=== PATIENT | female | born 1955 | race Caucasian/White ===

== ENCOUNTER 2020-12-12 20:30 | Emergency (ER) | payer MEDICARE, SELFPAY ==
[2020-12-12 21:03] VITALS: BP 123/73; PULSE 67; RESP 16; TEMP 36.8; O2SAT 93; BMI 29.9
--- NOTE | 2020-12-12 21:06 | CTR_ITS ---
PROCEDURE INFORMATION: Exam: CT Head Without Contrast Exam date and time: 12/12/2020 9:06 PM Age: 65 years old Clinical indication: Injury or trauma; Blunt trauma (contusions or hematomas); Patient HX: Fall. Lac to RT occipital/parietal. TECHNIQUE: Imaging protocol: Computed tomography of the head without contrast. Radiation optimization: All CT scans at this facility use at least one of these dose optimization techniques: automated exposure control; mA and/or kV adjustment per patient size (includes targeted exams where dose is matched to clinical indication); or iterative reconstruction. ADDITIONAL STUDY INFORMATION: Total DLP (mGy-cm): 880.47 COMPARISON: CT Head wo IV contrast* [id number] 01/25/2018 5:27 PM FINDINGS: Examination is limited by artifacts from patient motion. There is mild low density in the bilateral periventricular white matter which may represent chronic small vessel ischemic disease in the appropriate clinical setting. There are prominent intracranial arterial calcifications. There is mild to moderate cerebral cortical volume loss. Ventricles do not appear significantly dilated. No definite depressed calvarial fracture is demonstrated. Visualized paranasal sinuses and mastoid air cells demonstrate no significant opacification. CT/CT head wo con* [id number] IMPRESSION: Examination is limited by artifacts from patient motion. Probable chronic ischemic changes as discussed above. Radiation Dose CTDIVOL = (mGy): DLP = 880.47 (mGy-cm)
--- NOTE | 2020-12-12 21:31 | W.ED.HEATRA ---
HPI - Head Injury General: Chief complaint: Head Injury Stated complaint: head injury/lac Time Seen by Provider: 12/12/20 21:06 Source: patient Mode of arrival: ambulatory Limitations: no limitations History of Present Illness: HPI Narrative: 65-year-old female states that she was horsing around with her granddaughter and tripped backwards over a basketball and struck her head on a table. She does have a laceration to her posterior scalp and states she has a headache she rates a 6 out of 10. She denies any neck pain. Denies any other injuries. She denies loss consciousness. Associated symptoms: Deny nausea, neck pain or vomiting Review of Systems Const: Denies: fever(s), chills, body aches or change in appetite Eyes: Denies: blurry vision or eye discomfort ENMT: Denies: throat pain or dental pain Card: Denies: chest pain Resp: Denies: dyspnea GI: Denies: abdominal pain, nausea, vomiting or diarrhea : Denies: dysuria Musc: Denies: neck pain or back pain Skin/Breast: Denies: rash Neuro: Denies: headache(s) Psych: Denies: depression Albaro/Lymph: Denies: easy bruising All/Imm: Denies: urticaria Physical Exam Const: COMMON NORMALS: no acute distress, patient oriented x3 and healthy appearing HENMT: COMMON NORMALS: normocephalic HEAD & SCALP: normocephalic OTHER: 2 cm laceration to posterior scalp Eye: COMMON NORMALS: Equal, round and reactive pupils present and EOMs intact bilaterally PUPIL: Yes Equal, round and reactive pupils present Neck/C-Spine: COMMON NORMALS: full ROM and supple OTHER: No midline C-spine tenderness full range of motion noted without pain Chest: COMMONS NORMALS: normal inspection of the chest and normal palpation of entire chest wall Resp: COMMON NORMALS: normal respiratory effort, No retractions, No use of accessory muscles and clear to auscultation bilaterally AUSCULTATION: clear to auscultation bilaterally Cardio: COMMON NORMALS: regular rate, regular rhythm and No murmurs present (Cardio) RATE: regular rate RHYTHM: regular rhythm GI: COMMON NORMALS: Normal to inspection, nondistended, normoactive bowel sounds present, Soft to palpation, non-tender and no masses PALPATION: Yes Soft to palpation Extremity: COMMON NORMALS: normal to inspection and full ROM Neuro: COMMON NORMALS: patient oriented x3, moves all extremities and no focal motor deficits Psych: COMMON NORMALS: mental status grossly normal, Normal thought process present and cooperative THOUGHT PROCESS: Normal thought process present Skin: COMMON NORMALS: no rashes or lesions noted and no wounds GENERAL SKIN EXAM: no rashes or lesions noted Procedures Laceration Laceration 1: Site: scalp Size (cm): 3 Description: linear Depth: simple, single layer Local Anesthetic: lidocaine 1% Amount of anesthesia used (mL): 5 Pre-repair: wound explored and irrigated extensively Skin layer closed with: other (4 kavitha) Course Vital Signs: Vital signs: Vital Signs Temperature 98.3 F 12/12/20 21:03 Pulse Rate 72 12/12/20 21:53 Respiratory Rate 18 12/12/20 21:53 Blood Pressure 103/64 12/12/20 21:53 Pulse Oximetry 95 12/12/20 21:53 MDM - Head Injury MDM Narrative: Medical decision making narrative: Patient presents here with a head laceration from a fall. Laceration was repaired with kavitha. Head CT here showed no acute findings. She is stable for discharge and is to follow-up with PCP and return if worsening. Imaging Data^: CT Head: Radiologist's impression: [address] [id number] [address] Scan Report Signed Patient: Sondra Crawley Unit #: [id number] : 1955 Age/Sex: 65 / F ADM Date: 12/12/20 Loc: ER Room/Bed: Attending Dr: Ordering Provider/Ordering MD: Braulio Cruz MD Date of Service: 12/12/20 Procedure(s): CT head wo con* [id number] Accession Number(s): [id number] Report Number: [id number] PROCEDURE INFORMATION: Exam: CT Head Without Contrast Exam date and time: 12/12/2020 9:06 PM Age: 65 years old Clinical indication: Injury or trauma; Blunt trauma (contusions or hematomas); Patient HX: Fall. Lac to RT occipital/parietal. TECHNIQUE: Imaging protocol: Computed tomography of the head without contrast. Radiation optimization: All CT scans at this facility use at least one of these dose optimization techniques: automated exposure control; mA and/or kV adjustment per patient size (includes targeted exams where dose is matched to clinical indication); or iterative reconstruction. ADDITIONAL STUDY INFORMATION: Total DLP (mGy-cm): 880.47 COMPARISON: CT Head wo IV contrast* [id number] 01/25/2018 5:27 PM FINDINGS: Examination is limited by artifacts from patient motion. There is mild low density in the bilateral periventricular white matter which may represent chronic small vessel ischemic disease in the appropriate clinical setting. There are prominent intracranial arterial calcifications. There is mild to moderate cerebral cortical volume loss. Ventricles do not appear significantly dilated. No definite depressed calvarial fracture is demonstrated. Visualized paranasal sinuses and mastoid air cells demonstrate no significant opacification. CT/CT head wo con* [id number] IMPRESSION: Examination is limited by artifacts from patient motion. Probable chronic ischemic changes as discussed above. Radiation Dose CTDIVOL = (mGy): DLP = 880.47 Discharge Plan Discharge Patient Disposition: Home Clinical Impression: Laceration of head Qualifiers: Encounter type: initial encounter Location of open wound of head: other part of head Foreign body presence: without foreign body Qualified Code(s): S01.81XA - Laceration without foreign body of other part of head, initial encounter Fall Qualifiers: Encounter type: initial encounter Qualified Code(s): W19.XXXA - Unspecified fall, initial encounter Condition: Stable Discharge Orders: Discharge ED (Routine); Ordered 12/12/20 Ordered By: Braulio Cruz Referrals: Baltazar Miller MD [Primary Care Provider] - Discharge Diet: Advance as tolerated Discharge Activity: Resume usual activity Patient Instructions: Scalp Laceration Activity Restrictions/Additional Instructions: return in 7 days for staple removal Coding Level of Care Code ED [employer] for Chg Fwd Exam Comprehensive
[2020-12-12 21:53] VITALS: BP 103/64; PULSE 72; RESP 18; O2SAT 95
[2020-12-12] MEDS: tetanus-dipt-pertussis 0.5 mL SDV IM (21:58)
--- NOTE | 2020-12-12 22:10 | PC.NURSE ---
cleansed affected area with saline and peroxide with 4x4s as there was dried blood noted in hair and on patient. no dressing is applied
[2020-12-12 22:28] VITALS: BP 104/66
== END 2020-12-12 22:25 | disposition home or self-care (01) ==
PROVIDERS: Emergency Provider Emergency Medicine; PCP Family Medicine Geriatric Medicine
DX: S01.01XA Laceration without foreign body of scalp, initial encounter (principal); W18.09XA Striking against other object with subsequent fall, initial encounter; Z23 Encounter for immunization
CPT/HCPCS: 12002; 70450; 90471; 90715; 99283

== ENCOUNTER → 2020-12-31 16:13 | Outpatient (BNVA) | payer MEDICARE, SELFPAY | PROVIDERS: PCP Family Medicine Geriatric Medicine; Visit Provider Nurse Practitioner Family | DX: Z20.822 Contact with and (suspected) exposure to COVID-19 (principal) | CPT/HCPCS: 87635 ==

== ENCOUNTER → 2021-03-04 15:22 | Outpatient (BNVA) | payer MEDICARE, SELFPAY | PROVIDERS: PCP Family Medicine Geriatric Medicine; Visit Provider Podiatrist Foot & Ankle Surgery | DX: M21.371 Foot drop, right foot (principal); M20.41 Other hammer toe(s) (acquired), right foot; M20.42 Other hammer toe(s) (acquired), left foot | CPT/HCPCS: 73630 ==

== ENCOUNTER 2022-10-17 14:33 | Outpatient (CLI) | payer MEDICARE, SELFPAY ==
--- NOTE | 2022-10-17 14:52 | MR_ITS ---
WS: [id number] MRI LUMBAR SPINE NONCONTRAST HISTORY: DDD LUMBOSACRAL/SPINAL STENOSIS COMPARISON: 04/13/2012 TECHNIQUE: Sagittal and axial multisequence imaging is submitted. Central cervical stenosis at C3-4. Disc protrusions scattered throughout the thoracic and cervical sp ine. No cord compression. Marked LEFT curvature lumbar spine. Posterior fusion at L5-S1. Disc spaces are all narrowed and desiccated. Conus terminates normally at L1. L1-L2: Diffuse asymmetric disc bulging greatest to the LEFT. Marked ligamentum flavum and facet arthr itis. Osteophytic ridging. Mild central and subarticular recess stenosis. Moderate LEFT foraminal essence nosis. L2-L3: Asymmetric disc bulging and scoliosis. Marked facet and ligamentum flavum arthritis. Facet nicol nt encroachment into the RIGHT lateral thecal sac. Moderate central with severe bilateral subarticula r recess and foraminal stenosis. L3-L4: Osteophytic ridging and disc bulging and facet arthritis. Large posterior laminectomy defect. No central stenosis. Nerve roots are clustered within the RIGHT thecal sac due to the scoliosis. Bila teral subarticular recess and foraminal stenosis. Greater encroachment upon the RIGHT subarticular re cess and L4 nerve root. L4-L5: Marked annular disc bulging with osteophytic ridging. LEFT hemilaminectomy defect. Thecal sac is deformed by the scoliosis. Clumping of the nerve roots centrally. Mild central stenosis with subar ticular recess and foraminal stenosis. Greatest stenosis RIGHT foramen. L5-S1: Disc space is being obscured by artifact. Thecal sac is patent. At least mild foraminal stenos is with moderate facet arthritis. Paravertebral soft tissues are normal. MR/MR lumbar spine wo con* [id number] IMPRESSION: 1. Severe LEFT rotoscoliosis of the lumbar spine. Progressed since 2011. 2. Multilevel advanced osteophytosis, central and foraminal stenosis. 3. Prior posterior lumbar fusion at L5-S1. 4. Mild central and subarticular recess stenosis at L1-2 with moderate LEFT fo raminal stenosis. 5. Moderate central with severe bilateral subarticular recess and foraminal st enosis at L2-3. Significant progression since the prior study. 6. Bilateral subarticular recess and foraminal stenosis, RIGHT greater than LE FT. Moderate encroachment upon the traversing RIGHT L4 nerve root. 7. Mild central, subarticular recess and foraminal stenosis at L4-5. 8. Prior hemilaminectomy defects at L3-4 and L4-5.
== END 2022-10-17 14:34 | disposition home or self-care (01) ==
LOC: RAD 14:43
PROVIDERS: PCP Family Medicine Geriatric Medicine; Visit Provider Anesthesiology
DX: M47.812 Spondylosis without myelopathy or radiculopathy, cervical region (principal); M48.061 Spinal stenosis, lumbar region without neurogenic claudication; M51.37 Other intervertebral disc degeneration, lumbosacral region; Z98.1 Arthrodesis status
CPT/HCPCS: 72148

== ENCOUNTER 2022-10-20 14:03 | Outpatient (CLI) | payer MEDICARE, SELFPAY ==
--- NOTE | 2022-10-20 | MR_ITS ---
WS: [id number] MRI CERVICAL SPINE NONCONTRAST TECHNIQUE: Sagittal T1, T2 and STIR imaging. Axial T2, gradient, and fiesta imaging. CLINICAL INFORMATION: POST LAMINECTOMY SYNDROME COMPARISON: None. FINDINGS: Straightening of the normal cervical lordosis. Slight anterolisthesis C3 on C4. ACDF C4-C7. C2-C3: Mild facet arthropathy. Spinal canal and foramen are patent. C3-C4: Disc osteophyte complex with endplate ridging. Moderate central canal stenosis. Moderate facet arthropathy. Moderate RIGHT and mild LEFT bony foraminal narrowing. Moderate facet arthropathy. C4-C5: ACDF. Mild facet arthropathy. Mild LEFT foraminal narrowing. Spinal canal is patent. C5-C6: ACDF. LEFT osteophytic ridging. Slight contact of the cervical cord. Spinal canal is patent. M ild bilateral bony foraminal narrowing. Mild facet arthropathy. C6-C7: ACDF. RIGHT pericentral disc osteophyte protrusion with slight contact of the cervical cord. M ild central canal stenosis. Mild RIGHT and no significant LEFT foraminal narrowing. Mild facet arthro claribel. C7-T1: Mild disc osteophyte complex with mild central canal stenosis. Slight contact of the cervical cord. Mild bilateral foraminal narrowing. T1-T2: Slight anterolisthesis T1 on T2. Mild to moderate bilateral bony foraminal narrowing. Mild minh tral canal stenosis. T2-T3:Mild central canal stenosis T2-T3 with grade 1 anterolisthesis and mild to moderate bilateral b arvin foraminal narrowing. Mild facet arthropathy. Visualized brain stem structures: Normal. Prevertebral soft tissues: Normal. MR/MR cervical spin wo con* [id number] IMPRESSION: 1. Straightening of the normal cervical lordosis. Prior ACDF C4-C7. 2. Moderate central canal stenosis C3-C4 with indentation on the cervical cord and moderate central canal stenosis. 3. Mild central canal stenosis C6-C7, C7-T1, T1-T2, and T2-T3 4. Slight anterolisthesis C7 on T1, T1 on T2, T2 and T3. Slight anterolisthesi s C3 on C4 5. Moderate RIGHT C3-C4 and Mild LEFT C4-C5 bony foraminal narrowing. 6. Moderate RIGHT C6-C7 and LEFT C7-T1 bony foraminal narrowing. 7. Mild to moderate bilateral T1-T2 and T2-T3 bony foraminal narrowing.
== END 2022-10-20 14:04 | disposition home or self-care (01) ==
PROVIDERS: PCP Family Medicine Geriatric Medicine; Visit Provider Anesthesiology
DX: M47.812 Spondylosis without myelopathy or radiculopathy, cervical region (principal); M48.02 Spinal stenosis, cervical region
CPT/HCPCS: 72141

== ENCOUNTER 2024-11-03 18:10 | Emergency (ER) | payer MEDICARE, SELFPAY ==
[2024-11-03 18:12] VITALS: BP 142/70; PULSE 66; RESP 18; TEMP 36.4; O2SAT 95; BMI 25.7
--- NOTE | 2024-11-03 18:31 | CTR_ITS ---
PROCEDURE INFORMATION: Exam: CT Head Without Contrast Exam date and time: 11/03/2024 7:23 PM Age: 68 years old Clinical indication: Injury or trauma; Fall; Blunt trauma (contusions or hematomas); Additional info: Fall, head injury TECHNIQUE: Imaging protocol: Computed tomography of the head without contrast. Radiation optimization: All CT scans at this facility use at least one of these dose optimization techniques: automated exposure control; mA and/or kV adjustment per patient size (includes targeted exams where dose is matched to clinical indication); or iterative reconstruction. COMPARISON: CT head wo con* [id number] 12/12/2020 9:14 PM RADIATION DOSE METRICS: Total DLP (mGy-cm): 1146.7 FINDINGS: Brain: Mild diffuse parenchymal volume loss. No masses or midline shift. Thomas-white matter differentiation preserved. No intracranial hemorrhage. Cerebral ventricles: No ventriculomegaly. Paranasal sinuses: Visualized sinuses are unremarkable. No fluid levels. Mastoid air cells: Visualized mastoid air cells are well aerated. Bones: Unremarkable. No acute fracture. Soft tissues: Small anterior frontal scalp hematoma. CT/CT head wo con* [id number] IMPRESSION: 1. No acute intracranial findings. 2. Small anterior frontal scalp hematoma. 3. Mild diffuse parenchymal volume loss.
--- NOTE | 2024-11-03 18:31 | XRR_ITS ---
PROCEDURE INFORMATION: Exam: XR Right Shoulder Exam date and time: 11/03/2024 6:32 PM Age: 68 years old Clinical indication: Injury or trauma; Fall; Blunt trauma (contusions or hematomas); Shoulder; Right; Additional info: Fall, shoulder pain TECHNIQUE: Imaging protocol: Radiologic exam of the right shoulder. Views: 2 or more views. COMPARISON: MR cervical spin wo con* [id number] 10/20/2022 2:56 PM FINDINGS: Bones/joints: No acute fractures. Decreased osseous mineralization subjectively. Moderate degenerative changes of the acromioclavicular articulation. Mild degenerative changes of the glenohumeral articulation. Soft tissues: Normal. XR/XR shoulder RT min 2V* [id number] IMPRESSION: 1. No acute fractures or malalignment. 2. Decreased osseous mineralization subjectively.
--- NOTE | 2024-11-03 18:31 | CTR_ITS ---
PROCEDURE INFORMATION: Exam: CT Maxillofacial Without Contrast Exam date and time: 11/03/2024 7:23 PM Age: 68 years old Clinical indication: Injury or trauma; Fall; Blunt trauma (contusions or hematomas); Forehead and nose and lip/oral cavity; Upper; Additional info: Trauamatic facial pain TECHNIQUE: Imaging protocol: Computed tomography of the face without contrast. Radiation optimization: All CT scans at this facility use at least one of these dose optimization techniques: automated exposure control; mA and/or kV adjustment per patient size (includes targeted exams where dose is matched to clinical indication); or iterative reconstruction. COMPARISON: CT head wo con* [id number] 12/12/2020 9:14 PM RADIATION DOSE METRICS: Total DLP (mGy-cm): 628.9 FINDINGS: Paranasal sinuses: No air-fluid levels. Orbital cavities: Orbits are normal. Globes are unremarkable. Bones: No acute fracture. Soft tissues: Partially visualized small anterior frontal scalp hematoma. CT/CT facial bones wo con* [id number] IMPRESSION: 1. No acute facial or mandibular fractures. 2. Partially visualized small anterior frontal scalp hematoma.
--- NOTE | 2024-11-03 18:32 | CTR_ITS ---
PROCEDURE INFORMATION: Exam: CT Cervical Spine Without Contrast Exam date and time: 11/03/2024 7:23 PM Age: 68 years old Clinical indication: Injury or trauma; Fall; Blunt trauma; Prior surgery; Surgery date: 6+ months; Surgery type: Neck; Additional info: Fall, neck pain TECHNIQUE: Imaging protocol: Computed tomography of the cervical spine without contrast. Radiation optimization: All CT scans at this facility use at least one of these dose optimization techniques: automated exposure control; mA and/or kV adjustment per patient size (includes targeted exams where dose is matched to clinical indication); or iterative reconstruction. COMPARISON: MR cervical spin wo con* [id number] 10/20/2022 2:56 PM RADIATION DOSE METRICS: Total DLP (mGy-cm): 222.1 FINDINGS: Bones: No acute fractures. No bony destructive lesions. Intact anterior spinal fusion hardware at C4 through C7. Advanced degenerative disc changes at C3-C4 and C7-T1. Advanced multilevel facet joint arthropathy. Moderate to severe bilateral foraminal stenosis at C3-C4. Mild bilateral foraminal narrowing throughout the remainder of the cervical spine. Moderate spinal canal stenosis at C3-C4. Mild spinal canal stenosis at C5-C6, C6-C7, and C7-T1. Decreased osseous mineralization subjectively. Lungs: Calcified granuloma in the left lung apex. Soft tissues: Unremarkable. CT/CT cervical spin wo con* [id number] IMPRESSION: 1. No acute fractures or malalignment. 2. Intact anterior spinal fusion hardware at C4 through C7. 3. Moderate to advanced multilevel degenerative changes. 4. Moderate spinal canal stenosis at C3-C4. Mild spinal canal stenosis at C5-C6, C6-C7, and C7-T1.
--- NOTE | 2024-11-03 18:50 | W.ED.HEATRA ---
HPI - Head Injury General: Chief complaint: Head Injury Stated complaint: Fal, Shoulder pain, Time Seen by Provider: 11/03/24 18:27 History of Present Illness: 68-year-old female with a history of chronic pain syndrome on hydrocodone, hypertension, and depression who presents emergency room after having had a fall. She tripped secondary to a right sided chronic dropfoot and some new slippers. She fell onto her face. She has bruising of her lip and abrasions on her forehead. She thinks she may have lost consciousness this briefly. She is having some pain in her right shoulder. Mild pain in her left elbow. No neck pain at this time. No chest pain. No abdominal pain. No nausea or vomiting. No altered mental status. No focal motor deficits Related Data Home Medications ?Medication ?Instructions ?Recorded ?Confirmed albuterol sulfate 90 mcg/actuation 1 puff inhalation QID 03/04/21 07/29/21 aerosol inhaler alprazolam 1 mg tablet 1 mg PO TID PRN 03/04/21 07/29/21 aspirin 325 mg tablet 325 mg PO DAILY 03/04/21 07/29/21 cyclobenzaprine 10 mg tablet 10 mg PO TID 03/04/21 07/29/21 dicyclomine 20 mg tablet 20 mg PO QID 03/04/21 07/29/21 docusate sodium 100 mg capsule 100 mg PO BID 03/04/21 07/29/21 (Colace) escitalopram oxalate 20 mg tablet 20 mg PO DAILY 03/04/21 07/29/21 fluticasone propionate 50 2 spray intranasal DAILY 03/04/21 07/29/21 mcg/actuation nasal spray,suspension hydrocodone 7.5 mg-acetaminophen 1 tab PO Q6H PRN 03/04/21 07/29/21 325 mg tablet lidocaine 5 % topical patch 3 patch topical DAILY 03/04/21 07/29/21 lisinopril 20 mg tablet 20 mg PO DAILY 03/04/21 07/29/21 metoprolol tartrate 50 mg tablet 50 mg PO DAILY 03/04/21 07/29/21 montelukast 10 mg tablet 10 mg PO DAILY 03/04/21 07/29/21 naproxen 500 mg tablet 500 mg PO BID 03/04/21 07/29/21 nitroglycerin 0.4 mg sublingual 0.4 mg sublingual Q5M PRN 03/04/21 07/29/21 tablet omega 2-prm-bap-fish oil 1,200 mg cap PO 03/04/21 07/29/21 (144 mg-216 mg) capsule (Fish Oil) ondansetron 4 mg disintegrating 4 mg PO Q8H 03/04/21 07/29/21 tablet pantoprazole 40 mg tablet,delayed 40 mg PO DAILY 03/04/21 07/29/21 release potassium chloride 10 mEq 10 meq PO BID 03/04/21 07/29/21 capsule,extended release promethazine 25 mg tablet 25 mg PO Q6H PRN 03/04/21 07/29/21 simvastatin 20 mg tablet 20 mg PO DAILY 03/04/21 07/29/21 Previous Rx's ?Medication ?Instructions ?Recorded [place] brace for foot drop to #1 ea 03/04/21 right triamcinolone acetonide 0.1 % 1 applic topical TID #80 grams 07/29/21 topical cream Allergies Allergy/AdvReac Type Severity Reaction Status Date / Time sulfamethoxazole (From Allergy Intermediate nausea and Verified 07/29/21 15:01 Sulfamethoxazole-Trimethoprim) vomiting trimethoprim (From Allergy Intermediate nausea and Verified 03/04/21 15:30 Sulfamethoxazole-Trimethoprim) vomiting clonazepam Allergy Mild ADR-Nightma Verified 03/04/21 15:30 re cyclobenzaprine Allergy Mild ADR-Dry Verified 03/04/21 15:30 Mucus Membranes erythromycin base Allergy Mild ALGY-Rash Verified 03/04/21 15:31 PPD black rubber mix Allergy Mild ALGY-Rash Verified 03/04/21 15:30 tizanidine Allergy Mild ADR-Dry Verified 03/04/21 15:30 Mucus Membranes amitriptyline Allergy Unknown ADR-Halluci Verified 03/04/21 15:30 nating tramadol Allergy dry mouth Verified 03/04/21 15:30 PFSH ED PFSH: Social History Smoking and tobacco/nicotine status: never used tobacco/nicotine Physical Exam Narrative: EXAM NARRATIVE: General: Alert, no acute distress. Skin: Warm, dry. Head: Normocephalic, abrasions to the forehead, Neck: Supple, trachea midline. Eye: Extraocular movements are intact. Ears, nose, mouth and throat: mucosa moist. contusion of the lip. Cardiovascular: Regular, Normal peripheral perfusion. Respiratory: Lungs are clear to auscultation, respirations are non-labored, breath sounds are equal, Symmetrical chest wall expansion. Gastrointestinal: Soft, Nontender, Non distended Musculoskeletal: Normal ROM, no deformity. Neurological: Alert and oriented, No focal neurological deficit observed. Psychiatric: Cooperative, appropriate mood & affect. Course Vital Signs: Vital signs: Vital Signs Temperature 97.6 F 11/03/24 18:12 Pulse Rate 74 11/03/24 19:03 Respiratory Rate 18 11/03/24 18:12 Blood Pressure 147/85 11/03/24 19:03 Pulse Oximetry 95 11/03/24 19:03 Oxygen Delivery Me thod Room Air 11/03/24 18:12 MDM - Head Injury Medcial Decision Making Medical decision making: Differential diagnosis including but not limited to and based on the above HPI, review of systems and physical exam: patient with fall and head injury. Subdural hematoma, subarachnoid hemorrhage, concussion, skull fracture. Orders placed to evaluate differential diagnosis based on the above differential, HPI and physical exam CT scan of the head was ordered. CT head: No acute intracranial process. no intracranial hemorrhage, no evidence of infarct. no evidence of acute fracture.This was reviewed and interpreted by myself the ER physician. CT of the cervical spine: No fracture. Good alignment. No step-offs. This was reviewed and interpreted by myself the emergency room physician. I also reviewed the radiologist report. CT of the facial bones: No acute findings. This was reviewed and interpreted by myself the emergency room physician. I also reviewed the radiology report. X-ray of the shoulder: No acute process. This was reviewed and interpreted by myself the emergency room physician. I also reviewed the radiology report. I reviewed the patient's medical record. Assessment and plan: Facial contusions Lip contusion Forehead abrasion Shoulder strain - Discharged home - Discussed plan with patient. Answered any questions. - Evaluation and treatment of this problem were appropriate in the emergency setting. Lab Data Radiology Impressions Face CT 11/03/24 18:31 IMPRESSION: 1. No acute facial or mandibular fractures. 2. Partially visualized small anterior frontal scalp hematoma. Head CT 11/03/24 18:31 IMPRESSION: 1. No acute intracranial findings. 2. Small anterior frontal scalp hematoma. 3. Mild diffuse parenchymal volume loss. Shoulder X-Ray 11/03/24 18:31 IMPRESSION: 1. No acute fractures or malalignment. 2. Decreased osseous mineralization subjectively. Cervical Spine CT 11/03/24 18:32 IMPRESSION: 1. No acute fractures or malalignment. 2. Intact anterior spinal fusion hardware at C4 through C7. 3. Moderate to advanced multilevel degenerative changes. 4. Moderate spinal canal stenosis at C3-C4. Mild spinal canal stenosis at C5-C6, C6-C7, and C7-T1. All radiology interpretation(s) finalized by discharge Discharge Plan Discharge Patient Disposition: Home Clinical Impression: Closed head injury, Contusion of lip, Abrasion of forehead, Shoulder strain Condition: Stable Prescriptions: No Action albuterol sulfate 90 mcg/actuation HFA aerosol inhaler 1 puff inhalation QID alprazolam 1 mg tablet 1 mg PO TID PRN aspirin 325 mg tablet 325 mg PO DAILY docusate sodium [Colace] 100 mg capsule 100 mg PO BID cyclobenzaprine 10 mg tablet 10 mg PO TID dicyclomine 20 mg tablet 20 mg PO QID escitalopram oxalate 20 mg tablet 20 mg PO DAILY fluticasone propionate 50 mcg/actuation spray,suspension 2 spray intranasal DAILY Rx Instructions: administer into each nostril hydrocodone-acetaminophen 7.5-325 mg tablet 1 tab PO Q6H PRN lidocaine 5 % adhesive patch,medicated 3 patch topical DAILY Rx Instructions: leave on most painful area for up to 12 hrs lisinopril 20 mg tablet 20 mg PO DAILY metoprolol tartrate 50 mg tablet 50 mg PO DAILY montelukast 10 mg tablet 10 mg PO DAILY naproxen 500 mg tablet 500 mg PO BID nitroglycerin 0.4 mg tablet, sublingual 0.4 mg sublingual Q5M PRN Rx Instructions: do not exceed 3 doses per episode omega 3-rzv-alg-fish oil [Fish Oil] 1,200 (144-216) mg capsule PO ondansetron 4 mg tablet,disintegrating 4 mg PO Q8H pantoprazole 40 mg tablet,delayed release (DR/EC) 40 mg PO DAILY potassium chloride 10 mEq capsule, extended release 10 meq PO BID promethazine 25 mg tablet 25 mg PO Q6H PRN simvastatin 20 mg tablet 20 mg PO DAILY (DME) Ott[place]ock brace for foot drop to right See Rx Instructions .Route .MEDSUPPLY Qty: 1 0RF Rx Instructions: As directed by [facility] triamcinolone acetonide 0.1 % cream 1 applic topical TID Qty: 80 2RF Discharge Orders: Discharge ED (Routine); Ordered 11/03/24 Ordered By: Rosanna Roldan Referrals: Baltazar Miller MD [Referring, Geriatrics] Discharge Diet: Usual diet Discharge Activity: Increase activity as tolerated Patient Instructions: Fall Prevention for Older Adults (ED), Opioid Safety, Pain Management Activity Restrictions/Additional Instructions: Thank you for choosing [facility] for your healthcare needs today. You have been screened and evaluated and felt safe for discharge. Health conditions do change or evolve sometimes and as such it is important that you follow up with your Primary Doctor to be re checked, 3-5 days is a general good time frame for follow up. You are always welcome to return to the ED for re assessment if your symptoms are worsening or you have new concerns Print Language: Divehi Coding Level of Care Code ED Freezer Machine Operator for Gagan Verma
[2024-11-03] MEDS: HYDROcodone-acetaminophen 10-325 mg Tablet 1 TAB PO (19:02)
[2024-11-03 19:03] VITALS: BP 147/85; PULSE 74; O2SAT 95
[2024-11-03 20:41] VITALS: BP 154/90; PULSE 64; O2SAT 95
== END 2024-11-03 20:31 | disposition home or self-care (01) ==
PROVIDERS: Emergency Provider Emergency Medicine; PCP Electrodiagnostic Medicine
DX: S09.8XXA Other specified injuries of head, initial encounter (principal); S00.531A Contusion of lip, initial encounter; S00.81XA Abrasion of other part of head, initial encounter; S46.911A Strain of unspecified muscle, fascia and tendon at shoulder and upper arm level, right arm, initial encounter; Z79.82 Long term (current) use of aspirin; W19.XXXA Unspecified fall, initial encounter
CPT/HCPCS: 70450; 70486; 72125; 73030; 99284; J9999